=== PATIENT | female | born 1980 | race American Indian/Alaskan Native ===

== ENCOUNTER 2022-01-14 12:20 | Emergency (ER) | payer OTHER ==
[2022-01-14] MEDS ORDERED: IPRATROPIUM/ALBUTEROL SULFATE 3 ML AMPUL.NEB IH ONE (13:16)
--- NOTE | 2022-01-14 14:25 | XRay Report ---
XR chest routine 2V INDICATION / CLINICAL INFORMATION: SOB COMPARISON: None available. FINDINGS: SUPPORT DEVICES: None. HEART / MEDIASTINUM: No significant abnormality. LUNGS / PLEURA: Lungs are clear. Costophrenic sulci are sharp. No pneumothorax. ADDITIONAL FINDINGS: No significant additional findings. IMPRESSION: 1. No acute findings. Signer Name: Saurabh Westbrook MD Signed: 01/14/2022 2:20 PM Workstation Name: [id number]
[2022-01-14] MEDS ORDERED: dexAMETHasone 4 MG/ML VIAL IM ONE (14:35)
--- NOTE | 2022-01-14 14:40 | Emergency Department Report ---
Minor Respiratory - HPI Chief Complaint: Dyspnea/Respdistress Stated Complaint: SANJANA Time Seen by Provider: 01/14/22 13:51 Pain Location: Chest Severity: moderate Minor Respiratory: Yes Rhinorrhea, Yes Able to Tolerate Fluids, Yes Cough, Yes Shortness of Breath, No Sore Throat, No Ear Pain, No Sick Contacts, No Hemoptysis, No Chest Pain, No Fever (With wheezing) Other History: Patient is a 41-year-old female that comes to the ER with cough and wheezing for 2 weeks. She is diabetic. Her blood sugar was 120 this morning. She also has a history of asthma, allergies and hypertension. She is not taking her blood pressure medications because she is not been feeling well. She is on Januvia, a blood pressure medicine that she cannot give me the name of, trazodone and Singulair. Patient denies any chest pain, headache or shortness of breath other than that associated with her wheezing. She is on no inhaler at home. She states that she has not needed one in years. Note that it is the end of December in [place] and pollen counts are still high. Patient is in no acute distress on exam in triage. ED Review of Systems ROS: Stated complaint: SANJANA Other details as noted in HPI Comment: All other systems reviewed and negative ED Past Medical Hx - Past Medical History Previous Medical History?: Yes Hx Hypertension: Yes Hx Diabetes: Yes - Surgical History Past Surgical History?: No - Family History Family history: no significant - Medications Home Medications: Home Medications Medication Instructions Recorded Confirmed Last Taken Type Albuterol Mdi (or & Nicu Only) 2 puff IH QID PRN #1 inhalation 01/14/22 Unknown Rx [ProAir HFA Inhaler] Azithromycin [Zithromax Z-LILLIAN] 250 mg PO DAILY #6 tablet 01/14/22 Unknown Rx Cetirizine HCl [ZyrTEC] 10 mg PO DAILY #30 capsule 01/14/22 Unknown Rx predniSONE [Deltasone] 20 mg PO DAILY #5 tablet 01/14/22 Unknown Rx Minor Respiratory Exam - Exam General: Vital signs noted. No distress. Alert and acting appropriately. HEENT: Yes Moist Mucous Membranes, No Pharyngeal Erythema, No Pharyngeal Exudates, No Rhinorrhea, No Conjuctival Injection, No Frontal Tenderness, No Maxillary Tenderness Ear: Neither TM Bulge, Neither TM Erythema, Neither EAC Pain, Neither EAC Discharge Neck: Yes Supple, No Adenopathy Lungs: Yes Good Air Exchange, Yes Wheezes, No Ronchi, No Stridor, No Cough, No Labored Respirations, No Retractions, No Use of Accessory Muscles, No Other Abnormal Lung Sounds Heart: Yes Regular, No Murmur Abdomen: Yes Normal Bowel Sounds, No Tenderness, No Peritoneal Signs Skin: No Rash, No Edema Neurologic: Alert and oriented, no deficits. Musculoskeletal: Unremarkable. ED Course Vital Signs 01/14/22 13:12 Temperature 98.1 F Pulse Rate 71 Respiratory 16 Rate Blood Pressure 161/103 [Left] O2 Sat by Pulse 99 Oximetry ED Medical Decision Making - Radiology Data Radiology results: report reviewed, image reviewed No acute process - Medical Decision Making Vital Signs 01/14/22 13:12 Temperature 98.1 F Pulse Rate 71 Respiratory 16 Rate Blood Pressure 161/103 [Left] O2 Sat by Pulse 99 Oximetry X-ray noted without infiltrate or pneumonia I discussed patient's blood pressure with her. She will monitor her blood pressure. She did not take her blood pressure medications. She denies any chest pain. Her shortness of breath is only with wheezing Patient is in no acute distress, taking p.o. Ambulatory without shortness of breath. She is immunized for COVID. Patient discharged home with discharge plan of care including diet, activity medications and follow-up. Since she has been sick for 2 weeks I am giving her is just throw in addition to her other medications. She understands that she needs to see PCP for follow-up to make sure that she is getting better given her numerous comorbid conditions - Differential Diagnosis Asthma with or without exacerbation Critical care attestation.: If time is entered above; I have spent that time in minutes in the direct care of this critically ill patient, excluding procedure time. ED Disposition Clinical Impression: Asthma, acute, Allergic reaction, Chronic hypertension, Non-adherence to medical treatment Disposition: HOME / SELF CARE / HOMELESS Is pt being admited?: No Does the pt Need Aspirin: No Condition: Stable Instructions: Asthma (ED), Hypertension (ED), Asthma, Adult Additional Instructions: Take your daily blood pressure medicines please As well as her other daily medicines. The medicines given today will not interfere with them medications as ordered today Monitor your blood sugar it may be elevated since you are not feeling well Follow-up with your PCP in 48 hours for recheck to make sure you are feeling better I have given you referral below Diabetic diet Stay well-hydrated with water Activity as tolerated Referrals: YE MCNAIR MD [Staff Physician] - 3-5 Days Forms: Work/School Release Form(ED) Time of Disposition: 14:36
[2022-01-14 15:18] VITALS: BP 124/69
== END 2022-01-14 15:10 | disposition home or self-care (01) ==
LOC: ED 12:20
DX: T78.40XA Allergy, unspecified, initial encounter (principal); J45.909 Unspecified asthma, uncomplicated; I10 Essential (primary) hypertension; Z91.19 Patient's noncompliance with other medical treatment and regimen; E11.9 Type 2 diabetes mellitus without complications; X58.XXXA Exposure to other specified factors, initial encounter
CPT/HCPCS: 71046; 94640; 96372; 99283; J1100